=== PATIENT | male | born 1960 | race Caucasian/White ===

== ENCOUNTER 2023-12-17 08:34 | Day surgery (SDC) | payer BC ==
[~2023-12-17 08:34] MED LIST: Lactated Ringers 1,000 ML IV SCH; Sodium Chloride 0.9% 10 ML Syringe FLUSH PRN
[2023-12-17] MEDS ORDERED: Lidocaine 2% 5 ML SDV IV ONE (08:35)
[2023-12-17] MEDS ORDERED: Propofol 200 MG/20 ML SDV IV ONE (08:35)
[2023-12-17] MEDS ORDERED: Simethicone Drops 40 MG/0.6 ML 30 ML Bottle ONE (09:51)
== END 2023-12-17 11:25 | disposition home or self-care (01) ==
LOC: FB.SDS 08:34
PROVIDERS: ATTEND Surgery
DX: Z12.11 Encounter for screening for malignant neoplasm of colon (principal); K63.5 Polyp of colon; K57.30 Diverticulosis of large intestine without perforation or abscess without bleeding
CPT/HCPCS: 00811; 88305; A9270-GY; J2704; J7120